=== PATIENT | male | born 1985 | race African-American/Black ===

== ENCOUNTER 2019-06-16 02:55 | Emergency (ER) | payer SELFPAY ==
[~2019-06-16] VITALS: Ht 180.3 cm; Wt 72.6 kg
[2019-06-16 02:55] VITALS: BP 128/81
--- NOTE | 2019-06-16 03:05 | NUR ---
Note [place] in ED - 06/16/19 at 0332 by RADHA PATIENT BIB [facility]. PATIENT EXAMINED BY DR. MCKEON. PATIENT MEDICALLY CLEARED AND RELEASED IN CUSTODY IN STABLE CONDITION. ORIGINAL PRE-BOOK FORM GIVEN TO OFFICER [place]O [id number].
--- NOTE | 2019-06-16 03:22 | NUR ---
PT BIB BY [facility] PREBOOK. PT HAS ABRASIONS TO FACE S/P MECHANICAL FALL FROM RUNNING FROM [facility]. VSS. WAITING FOR ERMD TO EVALUATE PT.
[2019-06-16] MEDS ORDERED: BACITRACIN OINT 500 UNITS/GM PKT TP ONE ×2 (03:25→03:32)
[2019-06-16 03:30] VITALS: BP 128/81
--- NOTE | 2019-06-16 03:30 | NUR ---
PATIENT BIB [facility]. PATIENT EXAMINED BY DR. MCKEON. PATIENT MEDICALLY CLEARED AND RELEASED IN CUSTODY IN STABLE CONDITION. ORIGINAL PRE-BOOK FORM GIVEN TO OFFICER CHAPARRO [id number].
== END 2019-06-16 03:30 ==
LOC: MED 02:55
DX: S00.81XA Abrasion of other part of head, initial encounter (principal); X58.XXXA Exposure to other specified factors, initial encounter; Y93.89 Activity, other specified; Y92.89 Other specified places as the place of occurrence of the external cause; Y99.8 Other external cause status
CPT/HCPCS: 99283